=== PATIENT | female | born 1945 ===

== ENCOUNTER 2019-04-01 10:01 | Emergency (ER) | payer OTHER ==
[2019-04-01 10:07] VITALS: RESP 16; TEMP 99.1
--- NOTE | 2019-04-01 10:56 | C.PDOC ---
History Of Present Illness 73 year old female presents to ED with complaint of pain with urination and blood in urine that began today. Patient denies abdominal pain, back pain, fever, chills,nausea, or vomiting. Time Seen by Provider: 04/01/19 10:04 Chief Complaint (Nursing): Female Genitourinary History Per: Patient History/Exam Limitations: no limitations Onset/Duration Of Symptoms: Hrs (4) Current Symptoms Are (Timing): Still Present Quality Of Discomfort: "Pain" Associated Symptoms: Urinary Symptoms (hematuria and dysuria). denies: Fever, Chills, Nausea, Vomiting, Back Pain Alleviating Factors: None Abnormal Vaginal Bleeding: No Past Medical History Reviewed: Historical Data, Nursing Documentation, Vital Signs Vital Signs: Last Vital Signs Temp 99.1 F 04/01/19 10:04 Pulse 70 04/01/19 10:04 Resp 16 04/01/19 10:04 BP 173/67 H 04/01/19 10:04 Pulse Ox 99 04/01/19 10:04 Primary Care Provider: Guerda Danielson - Medical History PMH: HTN, Hypercholesterolemia Surgical History: No Surg Hx Family History: States: Unknown Family Hx - Social History Hx Alcohol Use: No Hx Substance Use: No Review Of Systems Constitutional: Negative for: Fever, Chills, Weakness Gastrointestinal: Negative for: Nausea, Vomiting, Abdominal Pain Genitourinary: Positive for: Dysuria, Hematuria. Negative for: Frequency, Vaginal Discharge, Vaginal Bleeding Musculoskeletal: Negative for: Back Pain Skin: Negative for: Rash Neurological: Negative for: Weakness, Numbness Physical Exam - Physical Exam Appears: Well, Non-toxic, No Acute Distress Skin: Normal Color, Warm, Dry Head: Atraumatic, Normacephalic Neck: Normal ROM, Supple Chest: Symmetrical, No Deformity Cardiovascular: Rhythm Regular, No Murmur Respiratory: No Accessory Muscle Use, No Rales, No Rhonchi, No Wheezing Gastrointestinal/Abdominal: Bowel Sounds (normoactive), Soft, No Tenderness, No Distention, No Guarding, No Rebound Back: No CVA Tenderness Neurological/Psych: Oriented x3, Normal Speech, Normal Cognition ED Course And Treatment O2 Sat by Pulse Oximetry: 99 (in RA) Pulse Ox Interpretation: Normal Medical Decision Making Medical Decision Making: Impression: 73 year old female presents to ED with complaint of pain with urination and blood in urine that began today. Initial Plan: * UA * U-culture Disposition Counseled Patient/Family Regarding: Studies Performed, Diagnosis, Need For Followup, Rx Given - Disposition Referrals: Guerda Danielson MD [Family Provider] - Disposition: HOME/ ROUTINE Disposition Time: 12:32 Condition: GOOD Additional Instructions: Laton los antibiticos segn lo prescrito. Beber ms pereira. Jakob un seguimiento con liu mdico en 2-3 jacobs. Regrese a la maria l de emergencias si tiene fiebre, vmitos, dolor de espalda u otros sntomas relacionados. Take antibiotics as prescribed. Drink increased water. Follow up with your doctor in 2-3 days. Return to ER for any fever, vomiting, back pain or other concerning symptoms. Prescriptions: Nitrofurantoin Macrocrystals [Macrobid] 100 mg PO BID #14 cap Instructions: Urinary Tract Infection, Adult (DC) Forms: Gen Discharge Inst Lao, [facility] (Lao) - Clinical Impression Clinical Impression: UTI (urinary tract infection) - PA / SCRAPER TENDER / Resident Statement MD/DO has reviewed & agrees with the documentation as recorded. (Edna Calzada) - Scribe Statement The provider has reviewed the documentation as recorded by the Scribe (Edna Calzada) All medical record entries made by the Scribe were at my direction and personally dictated by me. I have reviewed the chart and agree that the record accurately reflects my personal performance of the history, physical exam, medical decision making, and the department course for this patient. I have also personally directed, reviewed, and agree with the discharge instructions and disposition.
[2019-04-01 11:19] LABS: SQUAMOUS EPITHIAL 3 /hpf (0-5); URINE BILIRUBIN NEGATIVE (NEGATIVE); URINE BLOOD 3+ (NEGATIVE); URINE CLARITY Hazy (Clear); URINE COLOR Amber (YELLOW); URINE GLUCOSE (UA) NORMAL (Normal); URINE LEUKOCYTE ESTERASE 3+ Leu/uL (Negative); URINE PROTEIN 1+ mg/dL (NEGATIVE); URINE UROBILINOGEN NORMAL mg/dL (0.2-1.0); WBC CLUMPS MANY /hpf
[2019-04-01] MEDS ORDERED: cefTRIAXone IV 1 gm in Dextros 50 ML IVPB STA (11:27)
[2019-04-01 12:44] VITALS: BP 145/85; PULSE 74
[2019-04-03 20:28] VITALS: O2SAT 99
== END 2019-04-01 12:43 | disposition home or self-care (01) ==
LOC: C.ER 10:01
DX: N39.0 Urinary tract infection, site not specified (principal)
CPT/HCPCS: 81001; 82948; 87086; 87181; 96365; 99284; J0696